=== PATIENT | female | born 1980 | race Caucasian/White ===

== ENCOUNTER 2016-10-26 16:50 | Emergency (ER) | payer OTHER ==
[~2016-10-26] VITALS: Ht 162.6 cm; Wt 99.8 kg
--- NOTE | ~2016-10-26 | CR63 ---
[facility] A Service of [facility] RADIOLOGY TEXT RESULTS PATIENT: GRAEME HENSON LOCATION: CFTX : 84 UNIT #: [id number] AGE: [address]: Thi Singleton APRN SEX: F ORDER DR: [id number] [facility] [address] [place], [place] [address] [id number] E MR#: [id number] Acc #: [id number] NAME: GRAEME HENSON. : 1980 SEX: F STUDY DATE/TIME: 10/26/2016 17:40 UNIT: [facility] ROOM: STUDY DESCRIPTION: CR Chest 2 View Attending Physician: Thi Singleton A.P.R.N. Ordering Physician: Ed Mykel Arevalo M.D. Primary Care Physician: No Primary Care Physician MEDICAL IMAGING REPORT This report is preliminary unless electronic signature is present EXAM Chest PA and lateral, 10/26/2016. HISTORY Cough and chest congestion for 2 weeks. FINDINGS PA and lateral examination of the chest upright shows a good expansion of the parenchyma with a normal distribution of the pulmonary vascularity. There is no indication of congestion, effusion, infiltrate, tumor, or nodular density. The pleural reflections and diaphragmatic contours are normal. The cardiac silhouette and mediastinal anatomy is within normal limits. IMPRESSION Normal chest. Dictated by... Antonio Henderson M.D. THIS IS AN ELECTRONICALLY VERIFIED REPORT Antonio Henderson M.D. at 10/27/2016 2:22 PM KRT/bd TD: 10/27/2016 07:46 JOB #: [id number] MEDICAL IMAGING REPORT Page 1 of 1 COPY
[~2016-10-26 16:50] MED LIST: AMOXICILLIN PO; BACTRIM DS TABL1 TAB PO; BLEPH-105 M1 OP; CIPRO PO; EC-NAPROSYN500 MG PO; FLAGYL PO; FLEXERIL PO; FLEXERIL10 MG PO; HYDROXYZINE HCL25 M1 PO; IBUPROFEN PO; IBUPROFEN800 MG PO; KEFLEX500 MG PO; LORTAB 5/500 TA1 TA1 PO; MEDROL DOSEPAK4 MG DOB; MEDROL PO; MEDROL4 MG/DOSE- PO; MOBIC PO; MOTRIN600 MG PO; MUCINEX DM1 TAB.SR . PO; NABUMETONE PO; NO MEDICATIONS; NORCO1 TAB 10/3 PO; PERCOCET5/325 PO; PHENERGAN PO; PROZAC PO; ROBAXIN500 MG PO; RONDEC-DM ORAL30 ML PO; VICODIN 5/500 T1 TAB PO; VOLTAREN75 MG PO; ZOLOFT PO
== END 2016-10-26 19:13 | disposition home or self-care (01) ==
LOC: CFTX 16:50 → CED 16:50 → CFTX 19:12
DX: J20.9 Acute bronchitis, unspecified (principal); J02.9 Acute pharyngitis, unspecified; F41.9 Anxiety disorder, unspecified; F17.210 Nicotine dependence, cigarettes, uncomplicated; F43.10 Post-traumatic stress disorder, unspecified
CPT/HCPCS: 71020; 87651; 99283